=== PATIENT | female | born 1970 | race African-American/Black ===

== ENCOUNTER 2017-09-12 02:10 | Emergency (ER) | payer SELFPAY ==
[2017-09-12] MEDS ORDERED: 0.9 % SODIUM CHLORIDE 1,000 ML IV ONE (02:35)
--- NOTE | 2017-09-12 02:36 | ED Physician Documentation ---
Chest Pain - HISTORIAN Historian: patient, friend - HPI Chief Complaint: Chest Pain Additional Information: onset 1000 chest discomfort palpations then quit-went to [place] about 1600hrs developed more cp palpations sob diaphoresis decided to come to ed-smoked cigarette just before came into ed. Timing: gradual onset, gone now (at least much better) Duration: constant, waxing, waning (very slight exercise prod dyspnea) Last known Well Date: 09/12/17 Last Known Well Time: 10:00 Context: onset during:, activity Severity: mild, moderate Quality: pressure, tightness, other (rad to neck w/ sob and diaphoresis) Chest Pain Radiation: jaw, arms, neck Chest Pain Signs/Symptoms: diaphoresis. denies: nausea, vomiting, cool extremities Worsened By: exertion Relieved By: rest - ROS CONST: no problems MS/LYMPH: none GI/: none EYES/ENT: none SKIN/ENDO: none NEURO/PSYCH: none - PAST HX [place] risk factors: diabetes Type 2 (PCOS PERIPHERAL ARTY DS) Neuro deficit: none Lung disease: none (LAP FOR PCOS AND CERVICAL ABLATION) - SOCIAL HX Smoking History: less than 1 pack/day Alcohol Use: none Drug Use: none - FAMILY HX Family HX: other ([id number] M-D CA BREAST W/METS) - REVIEWED ASSESSMENTS Nursing Assessment Reviewed: Yes Vitals Reviewed: Yes ED Results Lab/Radiology - Orders Orders: ED Orders Category Date Time Status Continuous EKG monitoring Q30M Care 09/12/17 02:31 Ordered Continuous Pulse Oximetry Q30M Care 09/12/17 02:[address] IV Lock 1T Care 09/12/17 02:31 Ordered CBC/PLATELET/DIFF Routine Lab 09/12/17 02:31 Ordered CMP Routine Lab 09/12/17 02:31 Ordered CREATINE KINASE Routine Lab 09/12/17 02:31 Ordered TROPONIN I (cTnI) Stat Lab 09/12/17 02:31 Ordered Oxygen Daily Oxygen 09/12/17 02:45 Ordered EKG WITH COMPARISON Stat Ther 09/12/17 02:31 Ordered Chest Pain Physical Exam - EXAM General Appearance: mild distress EENT: eye inspection normal, no signs of dehydration, [place] Neck: nml inspection, no carotid bruit. No: lymphadenopathy Respiratory: no resp. distress, chest non-tender, nml breath sounds. No: decreased air movement, wheezes, rales CVS: reg. rate & rhythm, no murmur, bradycardia Abdomen: soft, non-tender Skin: warm/dry, normal color, cyanosis (LEGS). No: diaphoresis, jaundice, mottled, pallor Extremities: non-tender, normal range of motion, no evidence of injury, no edema Neuro: oriented X3, motor nml, sensation nml, mood/affect nml Discharge Clincal Impression: atypicall chest pain, untreated diabetes, obesity, nicotime abuse Referrals: Primary Doctor,No [Primary Care Provider] - 2 Days Comments: home dc cigarettes wt loss program f/u w/pcp or rt ed prn Condition: Good Disposition: 01 HOME, SELF-CARE Decision to Admit: NO Decision Time: 03:15
[2017-09-12 02:41] LABS: BASOPHILS % 0.6 (0.0-1.5); EOSINOPHILS % 2.6 % (0.0-6.8); MEAN CORPUSCULAR HEMOGLOBIN 32.3 pg (28.0-34.0); MEAN CORPUSCULAR VOLUME 96.4 fl (80.0-100.0); MONOCYTES % 3.6 % (0.0-11.0); NEUTROPHILS # 6.3 # k/uL (1.4-7.7)
[2017-09-12 02:52] LABS: eGFR (Non-African) > 60
[2017-09-12 03:47] VITALS: BP 157/79
[2017-09-12 06:56] LABS: APPEARANCE,URINE CLEAR (CLEAR); COLOR,URINE YELLOW (YELLOW); OCCULT BLOOD,URINE NEGATIVE (NEGATIVE); PH URINE 6.5 (5.0 - 8.0); UROBILINOGEN URINE 0.2 Eu (0.2-1.0)
== END 2017-09-12 03:45 | disposition home or self-care (01) ==
LOC: ED 02:10
DX: R07.89 Other chest pain (principal); E11.9 Type 2 diabetes mellitus without complications; E66.9 Obesity, unspecified; Z72.0 Tobacco use
CPT/HCPCS: 80053; 81002; 82550; 84484; 85025; 85379; 96365; 99283; S1016